=== PATIENT | female | born 1995 | race Two or more races ===

== ENCOUNTER 2018-05-25 08:05 | Inpatient (IN) | payer MEDICAID | END 2018-05-26 17:15 | disposition home or self-care (01) | LOC: LDRP 08:05 | PROC: 10D07Z6 Extraction of Products of Conception, Vacuum, Via Natural or Artificial Opening (ICD-10-PCS; principal; ~2018-05-25) | DX: O42.92 Full-term premature rupture of membranes, unspecified as to length of time between rupture and onset of labor (principal); Z37.0 Single live birth; Z3A.39 39 weeks gestation of pregnancy ==

== ENCOUNTER → 2021-08-04 | Outpatient (CLI) | payer MEDICAID ==
[~2021-08-04] MED LIST: PREN-96 PO
[2021-08-04 12:04] LABS: Basophils # (auto) 0 10 ^3/uL (0-0.2); Basophils % (auto) 0.4 % (0.0-2.0); Eosinophils # (auto) 0.1 10 ^3/uL (0-0.8); Eosinophils % (auto) 1.9 % (0.0-7.0); Hematocrit 36.6 % (36.0-46.0); Hemoglobin 12.6 g/dL (12.2-16.2); Lymphocytes # (auto) 2.5 10 ^3/uL (0.4-5.4); Lymphocytes % (auto) 36.3 % (10.0-50.0); Mean Corpuscular Hemoglobin 30.1 pg (28.0-32.0); Mean Corpuscular Hgb Conc. 34.3 g/dL (32.0-36.0); Mean Corpuscular Volume 87.8 fL (80.0-100.0); Monocytes # (auto) 0.4 10 ^3/uL (0-1.3); Monocytes % (auto) 5.6 % (0.0-12.0); Neutrophils # (auto) 3.8 10 ^3/uL (1.6-8.6); Neutrophils % (auto) 55.8 % (37.0-80.0); Nucleated Red Blood Cells % 0.1 %; Red Blood Cells 4.17 10^6/uL (4.0-5.20); Red Cell Distribution Width 13.7 % (11.8-14.3); White Blood Cell 6.8 10^3/uL (4.4-10.8)
[2021-08-04 13:44] LABS: Alcohol, Urine < 3.0 mg/dL (0-10); Amphetamine Screen, Urine NEGATIVE (NEGATIVE); Barbiturate Scree,Urine NEGATIVE (NEGATIVE); Benzodiazephine Screen, Urine NEGATIVE (NEGATIVE); Cannabinoid Screen, Urine NEGATIVE (NEGATIVE); Cocaine Screen, Urine NEGATIVE (NEGATIVE); Opiate Scree,Urine NEGATIVE (NEGATIVE); Phencyclidine Screen, Urine NEGATIVE (NEGATIVE)
[2021-08-05 07:07] LABS: RPR Non Reactive (Non Reactive)
== END | disposition home or self-care (01) ==
LOC: LAB 10:35
PROVIDERS: ATTEND Obstetrics & Gynecology
DX: Z34.81 Encounter for supervision of other normal pregnancy, first trimester (principal); Z11.3 Encounter for screening for infections with a predominantly sexual mode of transmission; Z31.430 Encounter of female for testing for genetic disease carrier status for procreative management; N36.0 Urethral fistula; N39.0 Urinary tract infection, site not specified
CPT/HCPCS: 36415; 80307; 83036; 84112; 84702; 85025; 86592; 86703; 86762; 86850; 86900; 86901; 87086; 87340

== ENCOUNTER 2022-01-06 01:15 | Inpatient (IN) | payer MEDICAID ==
[~2022-01-06] VITALS: Ht 165.1 cm; Wt 72.6 kg
[2022-01-06] MEDS ORDERED: BUTORPHANOL TARTRATE 2 MG/1 ML VIAL IV PRN ×2 (02:45)
[2022-01-06] MEDS ORDERED: PROMETHAZINE HCL 25 MG/ML 1ML IM PRN (02:45)
[2022-01-06] MEDS ORDERED: PROMETHAZINE HCL 25 MG/ML 1ML IV PRN (02:45)
[2022-01-06] MEDS ORDERED: LACTATED RINGER'S 1,000 ML IV SCH (02:45)
[2022-01-06] MEDS ORDERED: LIDOCAINE 2%HCL (LOCAL ANESTH.) INJ 10ml MDV IJ PRN (02:45)
[2022-01-06] MEDS ORDERED: PHISODERM TOP SOLN 240ML BTL TOP PRN (02:45)
[2022-01-06] MEDS ORDERED: LACT. RINGERS/OXYTOCIN 20UNITS 1,000 ML IV ONE (03:23)
[2022-01-06] MEDS ORDERED: OXYTOCIN 10UNIT/ML 1ML VIAL ONE (03:24)
[2022-01-06 03:46] LABS: Eosinophils # (auto) 0 10 ^3/uL (0-0.8); Lymphocytes # (auto) 2.9 10 ^3/uL (0.4-5.4); Monocytes # (auto) 0.3 10 ^3/uL (0-1.3)
[2022-01-06 03:49] LABS: Basophils # (auto) 0.1 10 ^3/uL (0-0.2); Basophils % (auto) 0.8 % (0.0-2.0); Eosinophils % (auto) 0.6 % (0.0-7.0); Hematocrit 32.9 % (36.0-46.0); Hemoglobin 10.3 g/dL (12.2-16.2); Lymphocytes % (auto) 36.6 % (10.0-50.0); Mean Corpuscular Hemoglobin 25.8 pg (28.0-32.0); Mean Corpuscular Hgb Conc. 31.2 g/dL (32.0-36.0); Mean Corpuscular Volume 82.7 fL (80.0-100.0); Neutrophils # (auto) 4.7 10 ^3/uL (1.6-8.6); Red Blood Cells 3.97 10^6/uL (4.0-5.20); Red Cell Distribution Width 15.3 % (11.8-14.3)
[2022-01-06 04:02] LABS: Calcium 8.6 mg/dL (8.5-10.1); Potassium 3.9 mmol/L (3.5-5.1)
[2022-01-06 04:05] LABS: Albumin 3.1 g/dL (3.4-5.0); BUN/Creatinine Ratio 9.8
[2022-01-06 04:08] LABS: Bilirubin, Total 0.3 mg/dL (0.2-1.0)
[2022-01-06] MEDS ORDERED: ONDANSETRON ODT 4 MG TAB PO PRN (04:30)
[2022-01-06] MEDS ORDERED: OXYTOCIN 10UNIT/ML 1ML VIAL IM ONE (04:45)
[2022-01-06] MEDS: IBUPROFEN 600 MG TAB PO PRN ×3 (04:48→20:18)
[2022-01-06] MEDS ORDERED: LACT. RINGERS/OXYTOCIN 20UNITS 500 ML IV ONE ×2 (06:00→06:30)
[2022-01-06 06:18] LABS: INR 0.93 (0.9-1.15); Partial Thromboplastin Time 26.8 sec (24.6-33.4)
[2022-01-06] MEDS: ACETAMINOPHEN 325 MG TAB PO PRN ×2 (06:59→19:00)
[2022-01-06 07:30] VITALS: BP 110/64
[2022-01-06 07:32] LABS: Urine Bacteria NONE SEEN /hpf (None Seen); Urine Blood 3+ /uL (Negative); Urine Specific Gravity 1.003 (1.001-1.035); Urine WBC 6 /hpf (0 - 5)
[2022-01-06 07:51] LABS: Alcohol, Urine < 3.0 mg/dL (0-10); Amphetamine Screen, Urine NEGATIVE (NEGATIVE); Barbiturate Scree,Urine NEGATIVE (NEGATIVE); Benzodiazephine Screen, Urine NEGATIVE (NEGATIVE); Cannabinoid Screen, Urine NEGATIVE (NEGATIVE); Cocaine Screen, Urine NEGATIVE (NEGATIVE); Opiate Scree,Urine NEGATIVE (NEGATIVE); Phencyclidine Screen, Urine NEGATIVE (NEGATIVE)
[2022-01-06 11:04] VITALS: BP 110/64
[2022-01-06 15:00] VITALS: BP 99/64
[2022-01-06] MEDS: WITCH HAZEL-GLYCERIN PAD TOP PRN (19:01)
[2022-01-06 19:30] VITALS: BP 114/76
[2022-01-06 23:30] VITALS: BP 119/72
[2022-01-07] MEDS: IBUPROFEN 600 MG TAB PO PRN (03:29)
[2022-01-07 03:30] VITALS: BP 116/59
[2022-01-07 05:06] LABS: RPR Non Reactive (Non Reactive)
[2022-01-07 07:00] VITALS: BP 119/60
[2022-01-07] MEDS: DERMOPLAST 60ML BOTTLE TOP PRN ×2 (08:23→08:32)
[2022-01-07] MEDS: WITCH HAZEL-GLYCERIN PAD TOP PRN ×2 (08:23→08:32)
[2022-01-07] MEDS: ACETAMINOPHEN 325 MG TAB PO PRN (08:24)
[2022-01-07 11:00] VITALS: BP 110/55
== END 2022-01-07 12:15 | disposition home or self-care (01) | DRG 560 ==
LOC: LDRP 01:15 → OBSVTOIN 02:25 → LDRP 02:51
PROVIDERS: ADMIT Obstetrics & Gynecology; ATTEND Obstetrics & Gynecology
PROC: 10E0XZZ Delivery of Products of Conception, External Approach (ICD-10-PCS; principal; 2022-01-06)
DX: O62.3 Precipitate labor (principal); Z37.0 Single live birth; Z20.822 Contact with and (suspected) exposure to COVID-19; Z3A.39 39 weeks gestation of pregnancy
CPT/HCPCS: 36415; 59025; 59409; 80053; 80307; 81001; 81002; 84112; 85025; 85610; 85730; 86592; 86850; 86900; 86901; 87426; 94760; 96360; 96361; 96365; 96366; 96372; G0378; J2590